=== PATIENT | female | born 1945 | race Caucasian/White ===

== ENCOUNTER 2021-06-10 18:43 | Emergency (ER) | payer OTHER ==
[2021-06-10 21:31] LABS: HEMOGLOBIN 13.8 gm/dl (12.3-15.3); RED BLOOD COUNT 4.53 M/UL (4.00-5.10); WHITE BLOOD COUNT 5.8 K/UL (4.5-11.0)
[2021-06-10 21:46] LABS: BUN/CREATININE RATIO 11 (0-10)
== END 2021-06-11 02:40 | disposition home or self-care (01) ==
LOC: ER1 18:43
PROVIDERS: Family Medicine
DX: R42 Dizziness and giddiness (principal); R11.2 Nausea with vomiting, unspecified; R19.7 Diarrhea, unspecified
CPT/HCPCS: 80053; 82550; 82553; 83690; 84439; 84443; 84484; 85025; 93005; 96374; 96375; 99284; J2060; Q9967

== ENCOUNTER 2021-08-10 18:03 | Observation (INO) | payer OTHER ==
[~2021-08-10] VITALS: Ht 175.3 cm; Wt 130.0 kg
[2021-08-10 18:47] LABS: HEMOGLOBIN 14.4 gm/dl (12.3-15.3); RED BLOOD COUNT 4.52 M/UL (4.00-5.10); WHITE BLOOD COUNT 7.4 K/UL (4.5-11.0)
[2021-08-10 19:09] LABS: BUN/CREATININE RATIO 23 (0-10)
[2021-08-11] MEDS ORDERED: HYDROCODON-ACE1 EAC4 PO (03:03)
[2021-08-11] MEDS ORDERED: STIOLTO RESPIMAT4 GM INH (03:03)
[2021-08-11] MEDS ORDERED: ALPRAZOLAM0.5 MG PO (03:04)
[2021-08-11] MEDS ORDERED: PROTONIX 40 MG40 M1 PO (03:04)
[2021-08-11] MEDS ORDERED: ANTIVERT 12.512.5 MG PO (03:05)
[2021-08-11] MEDS ORDERED: METOPROLOL TART50 MG PO (03:09)
[2021-08-11] MEDS ORDERED: ASPIRIN EC81 MG PO (03:11)
[2021-08-11] MEDS ORDERED: VITAMIN D325 MC6 PO (03:11)
[2021-08-11 05:30] LABS: HEMOGLOBIN 13.6 gm/dl (12.3-15.3); RED BLOOD COUNT 4.3 M/UL (4.00-5.10); WHITE BLOOD COUNT 7.6 K/UL (4.5-11.0)
[2021-08-12 06:49] LABS: HEMOGLOBIN 14.1 gm/dl (12.3-15.3); RED BLOOD COUNT 4.48 M/UL (4.00-5.10); WHITE BLOOD COUNT 7.2 K/UL (4.5-11.0)
[2021-08-14] MEDS ORDERED: LASIX20 MG PO (10:22)
[2021-08-14] MEDS ORDERED: PROVENTIL HFA6.7 GM INH (10:22)
[2021-08-14] MEDS ORDERED: METOPROLOL TART50 MG PO (10:22)
[2021-08-14] MEDS ORDERED: KLOR-CON M2020 MEQ PO (10:22)
== END 2021-08-14 12:03 | disposition home or self-care (01) ==
LOC: ER1 18:03 → M/S 23:05 → CDU 23:05 → M/S 23:05
PROVIDERS: Internal Medicine; Physician Assistant; ADMIT Internal Medicine
DX: I11.0 Hypertensive heart disease with heart failure (principal); I50.33 Acute on chronic diastolic (congestive) heart failure; J44.9 Chronic obstructive pulmonary disease, unspecified; E66.01 Morbid (severe) obesity due to excess calories; E87.3 Alkalosis; E87.6 Hypokalemia; R00.1 Bradycardia, unspecified; J96.11 Chronic respiratory failure with hypoxia; R42 Dizziness and giddiness; F41.9 Anxiety disorder, unspecified; Z99.81 Dependence on supplemental oxygen; Z86.79 Personal history of other diseases of the circulatory system; Z87.19 Personal history of other diseases of the digestive system; Z87.891 Personal history of nicotine dependence; Z85.3 Personal history of malignant neoplasm of breast; Z90.13 Acquired absence of bilateral breasts and nipples; Z95.818 Presence of other cardiac implants and grafts; Z20.822 Contact with and (suspected) exposure to COVID-19; Z88.2 Allergy status to sulfonamides; Z88.8 Allergy status to other drugs, medicaments and biological substances; Z79.01 Long term (current) use of anticoagulants; Z79.82 Long term (current) use of aspirin; Z79.899 Other long term (current) drug therapy
CPT/HCPCS: 36415; 36600; 71045; 80048; 80053; 82550; 82553; 82803; 83874; 83880; 84484; 85025; 93005; 94640; 94664; 94760; 96372; 96374; 96375; 96376; 99285; G0378; J1120; J1650; J1940; J2405; U0002

== ENCOUNTER 2022-04-17 18:55 | Emergency (ER) | payer MEDICARE, OTHER ==
[~2022-04-17 18:55] MED LIST: ALPRAZOLAM0.5 MG PO; ANTIVERT 12.512.5 MG PO; ASPIRIN EC81 MG PO; HYDROCODON-ACE1 EAC4 PO; KLOR-CON M2020 MEQ PO; LASIX20 MG PO; METOPROLOL TART50 MG PO; PROTONIX 40 MG40 M1 PO; PROVENTIL HFA6.7 GM INH; STIOLTO RESPIMAT4 GM INH; VITAMIN D325 MC6 PO
[2022-04-17] MEDS ORDERED: AMOX TR-K CLV1 EAC4 PO (19:36)
== END 2022-04-17 19:40 | disposition home or self-care (01) ==
LOC: ER1 18:55
DX: H66.91 Otitis media, unspecified, right ear (principal); J44.9 Chronic obstructive pulmonary disease, unspecified; E66.9 Obesity, unspecified; Z88.2 Allergy status to sulfonamides
CPT/HCPCS: 99282